=== PATIENT | male | born 1940 | race Caucasian/White ===

== ENCOUNTER 2016-09-19 18:19 | Emergency (ER) | payer OTHER, BC ==
[~2016-09-19] VITALS: Ht 170.2 cm; Wt 79.8 kg
[~2016-09-19 18:19] MED LIST: ANTIVERT25 MG PO; ASPIR-LOW81 MG PO; AUGMENTIN875 MG PO; AVODART PO; AVODART0.5 MG PO; AZITHROMYCIN250 MG PO; AZITHROMYCIN250 MG1 PO; BACTRIM,SEPT1 TABLET PO; CIPRO500 MG PO; Cipro PO; ESCITALOPRAM OX10 MG PO; FINASTERIDE5 MG PO; FLOMAX0.4 MG PO; Flomax PO; HYDROCODON-ACE1 EAC7 PO; LEXAPRO10 MG PO; LISINOPRIL5 MG PO; LO-DOSE ASPIRIN81 M1 PO; LOPRESSOR25 MG PO; LOW DOSE ASPIRI81 M1 PO; Lopressor PO; MECLIZINE HCL25 MG PO; MELOXICAM7.5 MG PO; METOPROLOL TART25 MG PO; NAPROSYN500 MG PO; NITROSTAT0.4 MG SL; NORCO 5/3251 TABLET PO; PERCOCET 5/31 TABLET PO; PLAVIX75 MG PO; PRAVACHOL20 MG PO; PRAVACHOL40 MG PO; PRAVASTATIN SOD20 MG PO; PRINIVIL5 MG PO; PROTONIX40 MG PO; PYRIDIUM200 MG PO; Pravachol PO; Protonix PO; TAMSULOSIN HCL0.4 MG PO; TRAMADOL HCL50 MG PO; Tylenol Regular Stre PO; ZOFRAN ODT4 MG PO; ZOFRAN4 MG PO; Zestril,Prinivil PO
[2016-09-19 20:41] LABS: HEMATOCRIT 43.5 % (38.0-50.0); MCH 30.3 PG (29.0-34.0); MCHC 34.3 G/DL (30.0-36.0); MCV 88.6 FL (86-99); MEAN PLAT.VOLUME 10.1 uM^3 (9.0-12.4); PLATELET COUNT 220 K/uL (156-360); RBC DIS.WIDTH-CV 13.7 % (11.8-14.6); RBC DIS.WIDTH-SD 43.6 % (39-53); RED BLOOD COUNT 4.91 M/uL (4.00-5.50); WHITE BLOOD COUNT 6.1 K/uL (4.1-10.2)
[2016-09-19 20:41] LABS: ADD MIUA? YES; BILIRUBIN NEGATIVE; BLOOD NEGATIVE; COLOR YELLOW ((YELLOW)); GLUCOSE (STRIP) NEGATIVE; KETONES NEGATIVE; LEUKOCYTES TRACE; NITRITE NEGATIVE; PROTEIN (STRIP) NEGATIVE; SPECIFIC GRAVITY 1.019 (1.000-1.030); UROBILINOGEN 0.2 MG/DL (0.2-1.0)
[2016-09-19 20:50] LABS: BACTERIA 2+ /HPF; EPITHELIAL CELLS RARE /HPF; MUCUS TRACE /LPF; RED BLOOD CELLS 0-5 /HPF (0-5); WHITE BLOOD CELLS 15-20 /HPF (0-5)
[2016-09-19 20:51] LABS: CHLORIDE 105 mEq/L (99-109); POTASSIUM 4.5 mEq/L (3.7-5.4); SODIUM 140 mEq/L (136-147)
[2016-09-19 20:54] LABS: GLUCOSE 115 mg/dL (70-99)
[2016-09-19 20:55] LABS: ANION GAP 10 MEQ/L (2-14)
[2016-09-19 20:56] LABS: TOTAL BILIRUBIN 0.3 mg/dL (0.0-1.0)
[2016-09-19 20:57] LABS: ALKALINE PHOSPHATASE 69 IU/L (3-129); GFR ESTIMATE (CALCULATED) > 59 mL/min/
[2016-09-19 20:58] LABS: UREA NITROGEN (BUN) 20 mg/dL (9-23)
[2016-09-20] MEDS ORDERED: ULTRAM50 MG PO (00:16)
[2016-09-20 00:55] VITALS: BP 128/78
== END 2016-09-20 00:58 | disposition home or self-care (01) ==
LOC: EME 18:19
PROVIDERS: Nurse Practitioner Family
DX: N20.0 Calculus of kidney (principal); E11.9 Type 2 diabetes mellitus without complications; E78.5 Hyperlipidemia, unspecified; I10 Essential (primary) hypertension; Z87.442 Personal history of urinary calculi; I25.2 Old myocardial infarction; K21.9 Gastro-esophageal reflux disease without esophagitis; Z95.0 Presence of cardiac pacemaker; Z95.1 Presence of aortocoronary bypass graft; Z98.61 Coronary angioplasty status; Z79.82 Long term (current) use of aspirin; Z87.891 Personal history of nicotine dependence
CPT/HCPCS: 74177; 80053; 81003; 85027; 87077; 87086; 87186; 99281; 99284; J1885; J7030

== ENCOUNTER 2016-09-28 11:56 | Observation (INO) | payer OTHER, BC ==
[~2016-09-28] VITALS: Ht 170.2 cm; Wt 83.3 kg
[~2016-09-28 11:56] MED LIST changes: +ULTRAM50 MG PO
[2016-09-28 12:51] LABS: EOSINOPHIL (%) 3.1 % (0-5); EOSINOPHIL COUNT 0.2 K/uL (0-0.3); HEMATOCRIT 41.6 % (38.0-50.0); IMMATURE GRANULOCYTE (%) 0.2 % (0.0-0.7); IMMATURE GRANULOCYTE COUNT 0.1 K/uL; LYMPHOCYTE COUNT 1.1 K/uL (1.0-2.8); MCH 29.9 PG (29.0-34.0); MCHC 33.9 G/DL (30.0-36.0); MCV 88.3 FL (86-99); MONOCYTE (%) 8.7 % (3-12); MONOCYTE COUNT 0.5 K/uL (0-0.8); NEUTROPHIL (%) 67.7 % (45-76); NEUTROPHIL COUNT 3.7 K/uL (1.8-6.4); PLATELET COUNT 193 K/uL (156-360); RBC DIS.WIDTH-CV 13.4 % (11.8-14.6); RBC DIS.WIDTH-SD 42.7 % (39-53); RED BLOOD COUNT 4.71 M/uL (4.00-5.50); WHITE BLOOD COUNT 5.5 K/uL (4.1-10.2)
[2016-09-28 12:59] LABS: CHLORIDE 107 mEq/L (99-109); POTASSIUM 4.1 mEq/L (3.7-5.4); SODIUM 140 mEq/L (136-147)
[2016-09-28 13:01] LABS: GLUCOSE 115 mg/dL (70-99)
[2016-09-28 13:02] LABS: ANION GAP 10 MEQ/L (2-14)
[2016-09-28 13:03] LABS: INTER. NORMALIZED RATIO 1.1; PROTHROMBIN TIME 10.7 (9.2-11.2); PTT 25.5 (25-32)
[2016-09-28 13:05] LABS: GFR ESTIMATE (CALCULATED) > 59 mL/min/
[2016-09-28 13:06] LABS: UREA NITROGEN (BUN) 18 mg/dL (9-23)
[2016-09-28 13:11] LABS: TROP-I INTERPRETATION NEGATIVE; TROPONIN-I < 0.01 ng/mL (0.0-0.30)
[2016-09-28] MEDS ORDERED: BUSPAR5 MG PO (14:15)
[2016-09-28 15:36] VITALS: BP 121/66
[2016-09-28 20:00] VITALS: BP 100/57
[2016-09-28 20:24] LABS: TROP-I INTERPRETATION NEGATIVE; TROPONIN-I < 0.01 ng/mL (0.0-0.30)
[2016-09-29] VITALS: BP 125/79
[2016-09-29 04:00] VITALS: BP 132/67
[2016-09-29 06:49] LABS: TROP-I INTERPRETATION NEGATIVE; TROPONIN-I < 0.01 ng/mL (0.0-0.30)
[2016-09-29 11:03] VITALS: BP 123/65
[2016-09-29] MEDS ORDERED: PANTOPRAZOLE SO40 MG PO (13:44)
[2016-09-29] MEDS ORDERED: AMOX TR-K CLV1 EAC4 PO (13:44)
[2016-09-29] MEDS ORDERED: PRAVASTATIN SOD40 MG PO (13:45)
[2016-09-29] MEDS ORDERED: LISINOPRIL5 MG PO (13:45)
[2016-09-29] MEDS ORDERED: LOPRESSOR25 MG PO (13:45)
[2016-09-29] MEDS ORDERED: BUSPAR5 MG PO (13:45)
[2016-09-29] MEDS ORDERED: NITROSTAT0.4 MG SL (13:45)
[2016-09-29] MEDS ORDERED: ASPIR-LOW81 MG PO (13:45)
[2016-09-29] MEDS ORDERED: ESCITALOPRAM OX20 MG PO (13:45)
== END 2016-09-29 14:32 | disposition home or self-care (01) ==
LOC: EME → EDBD 11:56 → EDOF 14:35 → 5WEST 15:31
PROVIDERS: Emergency Medicine; Family Medicine
DX: R07.89 Other chest pain (principal); R68.84 Jaw pain; I25.10 Atherosclerotic heart disease of native coronary artery without angina pectoris; I10 Essential (primary) hypertension; R20.0 Anesthesia of skin; Z95.1 Presence of aortocoronary bypass graft; Z95.0 Presence of cardiac pacemaker; Z95.5 Presence of coronary angioplasty implant and graft; E78.5 Hyperlipidemia, unspecified; F41.9 Anxiety disorder, unspecified
CPT/HCPCS: 71010; 80048; 84484; 85025; 85610; 85730; 93005; 99281; 99285; G0378; J1650

== ENCOUNTER 2016-10-16 18:18 | Emergency (ER) | payer OTHER, BC ==
[~2016-10-16] VITALS: Ht 170.2 cm; Wt 78.4 kg
[~2016-10-16 18:18] MED LIST changes: +AMOX TR-K CLV1 EAC4 PO; +BUSPAR5 MG PO; +ESCITALOPRAM OX20 MG PO; +PANTOPRAZOLE SO40 MG PO; +PRAVASTATIN SOD40 MG PO
[2016-10-16] MEDS ORDERED: TYLENOL WITH C1 EACH PO (19:11)
[2016-10-16] MEDS ORDERED: ULTRACET1 TABLET PO (19:23)
[2016-10-16 19:37] VITALS: BP 121/77
== END 2016-10-16 19:37 | disposition home or self-care (01) ==
LOC: EME 18:18
DX: R10.9 Unspecified abdominal pain (principal); I10 Essential (primary) hypertension; I25.2 Old myocardial infarction; Z88.1 Allergy status to other antibiotic agents; Z88.5 Allergy status to narcotic agent
CPT/HCPCS: 99281; 99283; J1885

== ENCOUNTER 2016-10-19 22:17 | Emergency (ER) | payer OTHER, BC ==
[~2016-10-19] VITALS: Ht 170.2 cm; Wt 81.2 kg
[~2016-10-19 22:17] MED LIST changes: +TYLENOL WITH C1 EACH PO; +ULTRACET1 TABLET PO
[2016-10-19 23:33] LABS: EOSINOPHIL (%) 3.3 % (0-5); EOSINOPHIL COUNT 0.2 K/uL (0-0.3); HEMATOCRIT 40.8 % (38.0-50.0); IMMATURE GRANULOCYTE (%) 0.2 % (0.0-0.7); INSTRUMENT ABS NEUTROPHIL CT 2.8 K/uL; LYMPHOCYTE COUNT 1.6 K/uL (1.0-2.8); MCH 29.8 PG (29.0-34.0); MCHC 32.8 G/DL (30.0-36.0); MCV 90.7 FL (86-99); MONOCYTE (%) 9.4 % (3-12); MONOCYTE COUNT 0.5 K/uL (0-0.8); NEUTROPHIL (%) 55.3 % (45-76); NEUTROPHIL COUNT 2.8 K/uL (1.8-6.4); RBC DIS.WIDTH-CV 13.2 % (11.8-14.6); RBC DIS.WIDTH-SD 43.4 % (39-53); WHITE BLOOD COUNT 5.1 K/uL (4.1-10.2)
[2016-10-19 23:59] LABS: TROP-I INTERPRETATION NEGATIVE; TROPONIN-I < 0.01 ng/mL (0.0-0.30)
[2016-10-20 00:18] LABS: ADD MIUA? NO; BILIRUBIN NEGATIVE; BLOOD NEGATIVE; COLOR YELLOW ((YELLOW)); GLUCOSE (STRIP) 50; KETONES NEGATIVE; LEUKOCYTES NEGATIVE; NITRITE NEGATIVE; PROTEIN (STRIP) NEGATIVE; SPECIFIC GRAVITY 1.024 (1.000-1.030); UROBILINOGEN 0.2 MG/DL (0.2-1.0)
[2016-10-20 00:20] LABS: MEAN PLAT.VOLUME 10.3 uM^3 (9.0-12.4); PLAT.SUFFICIENCY ADEQUATE; PLATELET COUNT 176 K/uL (156-360)
[2016-10-20 01:11] LABS: CHLORIDE 110 mEq/L (99-109); POTASSIUM 4.5 mEq/L (3.7-5.4); SODIUM 140 mEq/L (136-147)
[2016-10-20 01:13] LABS: GLUCOSE 108 mg/dL (70-99)
[2016-10-20 01:14] LABS: ANION GAP 8 MEQ/L (2-14)
[2016-10-20 01:17] LABS: GFR ESTIMATE (CALCULATED) > 59 mL/min/
[2016-10-20 01:18] LABS: UREA NITROGEN (BUN) 16 mg/dL (9-23)
[2016-10-20 03:52] LABS: TROP-I INTERPRETATION NEGATIVE; TROPONIN-I 0.01 ng/mL (0.0-0.30)
[2016-10-20] MEDS ORDERED: MOTRIN800 MG PO (04:02)
[2016-10-20] MEDS ORDERED: BENTYL20 MG PO (04:13)
[2016-10-20 04:38] VITALS: BP 123/77
== END 2016-10-20 04:40 | disposition home or self-care (01) ==
LOC: EME → EDBD 22:17 → EME 10-20 04:40
PROVIDERS: Emergency Medicine
DX: R07.89 Other chest pain (principal); R10.31 Right lower quadrant pain; G89.29 Other chronic pain; I10 Essential (primary) hypertension; Z95.810 Presence of automatic (implantable) cardiac defibrillator; Z95.2 Presence of prosthetic heart valve; Z95.5 Presence of coronary angioplasty implant and graft
CPT/HCPCS: 71020; 74177; 80048; 81003; 84484; 85025; 85027; 93005; 99281; 99285; J1885; J2270; J2405; J7030

== ENCOUNTER 2017-03-13 20:47 | Emergency (ER) | payer OTHER, BC ==
[~2017-03-13] VITALS: Ht 170.2 cm; Wt 79.3 kg
[~2017-03-13 20:47] MED LIST changes: +BENTYL20 MG PO; +MOTRIN800 MG PO
[2017-03-13 21:45] LABS: HEMATOCRIT 41.5 % (38.0-50.0); MCH 29.8 PG (29.0-34.0); MCHC 33.5 G/DL (30.0-36.0); MCV 89.1 FL (86-99); MEAN PLAT.VOLUME 9.6 uM^3 (9.0-12.4); PLATELET COUNT 199 K/uL (156-360); RBC DIS.WIDTH-CV 13.1 % (11.8-14.6); RBC DIS.WIDTH-SD 42.4 % (39-53); RED BLOOD COUNT 4.66 M/uL (4.00-5.50)
[2017-03-13 22:02] LABS: CHLORIDE 108 mEq/L (99-109); POTASSIUM 4.1 mEq/L (3.7-5.4); SODIUM 140 mEq/L (136-147)
[2017-03-13 22:04] LABS: GLUCOSE 107 mg/dL (70-99)
[2017-03-13 22:05] LABS: ANION GAP 8 MEQ/L (2-14)
[2017-03-13 22:06] LABS: TOTAL BILIRUBIN 0.4 mg/dL (0.0-1.0)
[2017-03-13 22:07] LABS: ALKALINE PHOSPHATASE 73 IU/L (3-129)
[2017-03-13 22:08] LABS: GFR ESTIMATE (CALCULATED) > 59 mL/min/
[2017-03-13 22:09] LABS: UREA NITROGEN (BUN) 18 mg/dL (9-23)
[2017-03-13 22:11] LABS: LIPASE 27 U/L (1.0-51.0); TROP-I INTERPRETATION NEGATIVE; TROPONIN-I < 0.01 ng/mL (0.0-0.30)
[2017-03-14 00:42] LABS: TROP-I INTERPRETATION NEGATIVE; TROPONIN-I < 0.01 ng/mL (0.0-0.30)
[2017-03-14 01:23] VITALS: BP 111/70
== END 2017-03-14 01:30 | disposition home or self-care (01) ==
LOC: EME 20:47
PROVIDERS: Emergency Medicine
DX: R10.9 Unspecified abdominal pain (principal); R07.9 Chest pain, unspecified; N50.819 Testicular pain, unspecified; M79.602 Pain in left arm; N20.0 Calculus of kidney; K57.30 Diverticulosis of large intestine without perforation or abscess without bleeding; I70.90 Unspecified atherosclerosis; Z95.0 Presence of cardiac pacemaker; Z95.1 Presence of aortocoronary bypass graft; Z95.5 Presence of coronary angioplasty implant and graft
CPT/HCPCS: 74177; 80053; 83690; 84484; 85027; 93005; 99281; 99285

== ENCOUNTER 2017-04-15 11:11 | Emergency (ER) | payer OTHER, BC ==
[~2017-04-15] VITALS: Ht 170.2 cm; Wt 79.5 kg
[2017-04-15 12:17] LABS: HEMATOCRIT 41.7 % (38.0-50.0); MCH 30.2 PG (29.0-34.0); MCHC 33.6 G/DL (30.0-36.0); MCV 89.9 FL (86-99); MEAN PLAT.VOLUME 9.7 uM^3 (9.0-12.4); PLATELET COUNT 200 K/uL (156-360); RBC DIS.WIDTH-CV 13.4 % (11.8-14.6); RBC DIS.WIDTH-SD 44.5 % (39-53); RED BLOOD COUNT 4.64 M/uL (4.00-5.50); WHITE BLOOD COUNT 5.4 K/uL (4.1-10.2)
[2017-04-15 12:26] LABS: CHLORIDE 106 mEq/L (99-109); SODIUM 141 mEq/L (136-147)
[2017-04-15 12:28] LABS: GLUCOSE 162 mg/dL (70-99)
[2017-04-15 12:29] LABS: ANION GAP 12 MEQ/L (2-14)
[2017-04-15 12:32] LABS: GFR ESTIMATE (CALCULATED) > 59 mL/min/
[2017-04-15 12:33] LABS: UREA NITROGEN (BUN) 17 mg/dL (9-23)
[2017-04-15 12:40] LABS: TROP-I INTERPRETATION NEGATIVE; TROPONIN-I < 0.01 ng/mL (0.0-0.30)
[2017-04-15 13:55] LABS: INFLUENZA A VIRAL ANTIGEN NEGATIVE; INFLUENZA B VIRAL ANTIGEN NEGATIVE
[2017-04-15 16:23] LABS: TROP-I INTERPRETATION NEGATIVE; TROPONIN-I < 0.01 ng/mL (0.0-0.30)
[2017-04-15 17:20] VITALS: BP 132/70
== END 2017-04-15 17:21 | disposition home or self-care (01) ==
LOC: EME 11:11
PROVIDERS: Physician Assistant
DX: R06.02 Shortness of breath (principal); F41.9 Anxiety disorder, unspecified; I51.9 Heart disease, unspecified; E11.65 Type 2 diabetes mellitus with hyperglycemia; R20.0 Anesthesia of skin; R20.2 Paresthesia of skin; Z98.61 Coronary angioplasty status; Z95.810 Presence of automatic (implantable) cardiac defibrillator; Z87.442 Personal history of urinary calculi; I25.2 Old myocardial infarction; K21.9 Gastro-esophageal reflux disease without esophagitis; I25.10 Atherosclerotic heart disease of native coronary artery without angina pectoris; I10 Essential (primary) hypertension; E78.5 Hyperlipidemia, unspecified; Z95.1 Presence of aortocoronary bypass graft; Z95.0 Presence of cardiac pacemaker; N40.0 Benign prostatic hyperplasia without lower urinary tract symptoms
CPT/HCPCS: 71020; 71275; 80048; 84484; 85027; 85379; 87502; 93005; 99281; 99283; J7030

== ENCOUNTER 2017-05-10 13:41 | Emergency (ER) | payer OTHER, BC ==
[~2017-05-10] VITALS: Ht 170.2 cm; Wt 76.9 kg
[2017-05-10 15:01] LABS: EOSINOPHIL (%) 2.5 % (0-5); EOSINOPHIL COUNT 0.2 K/uL (0-0.3); HEMATOCRIT 39.8 % (38.0-50.0); IMMATURE GRANULOCYTE (%) 0.5 % (0.0-0.7); INSTRUMENT ABS NEUTROPHIL CT 4.5 K/uL; LYMPHOCYTE COUNT 1.1 K/uL (1.0-2.8); MCH 29.8 PG (29.0-34.0); MCHC 33.2 G/DL (30.0-36.0); MCV 89.8 FL (86-99); MEAN PLAT.VOLUME 9.7 uM^3 (9.0-12.4); MONOCYTE (%) 8.7 % (3-12); MONOCYTE COUNT 0.6 K/uL (0-0.8); NEUTROPHIL (%) 71.1 % (45-76); NEUTROPHIL COUNT 4.5 K/uL (1.8-6.4); PLATELET COUNT 187 K/uL (156-360); RBC DIS.WIDTH-CV 13.5 % (11.8-14.6); RBC DIS.WIDTH-SD 44.7 % (39-53); RED BLOOD COUNT 4.43 M/uL (4.00-5.50); WHITE BLOOD COUNT 6.3 K/uL (4.1-10.2)
[2017-05-10 15:11] LABS: CHLORIDE 111 mEq/L (99-109); POTASSIUM 4.1 mEq/L (3.7-5.4); SODIUM 139 mEq/L (136-147)
[2017-05-10 15:12] LABS: GLUCOSE 96 mg/dL (70-99)
[2017-05-10 15:14] LABS: ANION GAP 6 MEQ/L (2-14)
[2017-05-10 15:16] LABS: GFR ESTIMATE (CALCULATED) > 59 mL/min/
[2017-05-10 15:17] LABS: UREA NITROGEN (BUN) 22 mg/dL (9-23)
[2017-05-10 15:23] LABS: TROP-I INTERPRETATION NEGATIVE; TROPONIN-I < 0.01 ng/mL (0.0-0.30)
[2017-05-10] MEDS ORDERED: DOXYCYCLINE HY100 MG PO (16:03)
[2017-05-10 17:15] VITALS: BP 123/71
== END 2017-05-10 17:29 | disposition home or self-care (01) ==
LOC: EME 13:41
PROVIDERS: Emergency Medicine
DX: J40 Bronchitis, not specified as acute or chronic (principal); I10 Essential (primary) hypertension; E78.5 Hyperlipidemia, unspecified; Z95.0 Presence of cardiac pacemaker; Z95.1 Presence of aortocoronary bypass graft; Z95.5 Presence of coronary angioplasty implant and graft; Z79.82 Long term (current) use of aspirin; Z88.1 Allergy status to other antibiotic agents
CPT/HCPCS: 71020; 80048; 84484; 85025; 93005; 99281; 99284

== ENCOUNTER 2017-05-16 22:30 | Emergency (ER) | payer OTHER, BC ==
[~2017-05-16] VITALS: Ht 170.2 cm; Wt 72.0 kg
[~2017-05-16 22:30] MED LIST changes: +DOXYCYCLINE HY100 MG PO
[2017-05-16 23:12] LABS: HEMATOCRIT 39.5 % (38.0-50.0); MCHC 33.7 G/DL (30.0-36.0); MEAN PLAT.VOLUME 9.7 uM^3 (9.0-12.4); PLATELET COUNT 219 K/uL (156-360); RBC DIS.WIDTH-CV 13.5 % (11.8-14.6); RBC DIS.WIDTH-SD 43.8 % (39-53); RED BLOOD COUNT 4.44 M/uL (4.00-5.50); WHITE BLOOD COUNT 7.2 K/uL (4.1-10.2)
[2017-05-16 23:21] LABS: CHLORIDE 106 mEq/L (99-109); POTASSIUM 4.2 mEq/L (3.7-5.4); SODIUM 137 mEq/L (136-147)
[2017-05-16 23:23] LABS: GLUCOSE 149 mg/dL (70-99)
[2017-05-16 23:25] LABS: ANION GAP 8 MEQ/L (2-14); TOTAL BILIRUBIN 0.3 mg/dL (0.0-1.0)
[2017-05-16 23:27] LABS: ALKALINE PHOSPHATASE 58 IU/L (3-129); GFR ESTIMATE (CALCULATED) > 59 mL/min/
[2017-05-16 23:28] LABS: UREA NITROGEN (BUN) 28 mg/dL (9-23)
[2017-05-16 23:29] LABS: DIRECT BILIRUBIN 0.1 mg/dL (0.0-0.3)
[2017-05-16 23:31] LABS: LIPASE 28 U/L (1.0-51.0)
[2017-05-16 23:54] LABS: TROP-I INTERPRETATION NEGATIVE; TROPONIN-I < 0.01 ng/mL (0.0-0.30)
[2017-05-17 01:01] LABS: ADD MIUA? NO; BILIRUBIN NEGATIVE; BLOOD NEGATIVE; COLOR YELLOW ((YELLOW)); GLUCOSE (STRIP) 50; KETONES NEGATIVE; LEUKOCYTES NEGATIVE; NITRITE NEGATIVE; PROTEIN (STRIP) NEGATIVE; SPECIFIC GRAVITY 1.026 (1.000-1.030); UCUL ADDED? NO; UROBILINOGEN 0.2 MG/DL (0.2-1.0)
[2017-05-17 02:28] VITALS: BP 136/76
== END 2017-05-17 02:30 | disposition home or self-care (01) ==
LOC: EME → EDBD 22:30 → EME 22:30
PROVIDERS: Emergency Medicine
DX: R10.84 Generalized abdominal pain (principal); R20.0 Anesthesia of skin; E11.9 Type 2 diabetes mellitus without complications; E78.5 Hyperlipidemia, unspecified; I10 Essential (primary) hypertension; I25.2 Old myocardial infarction; F32.9 Major depressive disorder, single episode, unspecified; Z87.442 Personal history of urinary calculi; K21.9 Gastro-esophageal reflux disease without esophagitis; F41.9 Anxiety disorder, unspecified; Z95.1 Presence of aortocoronary bypass graft; Z95.0 Presence of cardiac pacemaker; Z95.5 Presence of coronary angioplasty implant and graft; Z87.19 Personal history of other diseases of the digestive system
CPT/HCPCS: 70450; 74176; 80048; 80076; 81003; 83690; 84484; 85027; 87086; 93005; 99281; 99284

== ENCOUNTER 2017-06-15 16:04 | Emergency (ER) | payer OTHER, BC ==
[~2017-06-15] VITALS: Ht 170.2 cm; Wt 62.0 kg
[2017-06-15 16:51] LABS: HEMATOCRIT 40.4 % (38.0-50.0); MCH 30.5 PG (29.0-34.0); MCHC 33.9 G/DL (30.0-36.0); MEAN PLAT.VOLUME 9.8 uM^3 (9.0-12.4); PLATELET COUNT 224 K/uL (156-360); RBC DIS.WIDTH-CV 13.6 % (11.8-14.6); RBC DIS.WIDTH-SD 44.8 % (39-53); RED BLOOD COUNT 4.49 M/uL (4.00-5.50); WHITE BLOOD COUNT 5.6 K/uL (4.1-10.2)
[2017-06-15 17:00] LABS: CHLORIDE 110 mEq/L (99-109); POTASSIUM 4.1 mEq/L (3.7-5.4); SODIUM 141 mEq/L (136-147)
[2017-06-15 17:01] LABS: GLUCOSE 113 mg/dL (70-99)
[2017-06-15 17:03] LABS: ANION GAP 9 MEQ/L (2-14)
[2017-06-15 17:05] LABS: GFR ESTIMATE (CALCULATED) > 59 mL/min/
[2017-06-15 17:06] LABS: UREA NITROGEN (BUN) 20 mg/dL (9-23)
[2017-06-15 17:11] LABS: TROP-I INTERPRETATION NEGATIVE; TROPONIN-I < 0.01 ng/mL (0.0-0.30)
[2017-06-15 20:59] LABS: TROP-I INTERPRETATION NEGATIVE; TROPONIN-I < 0.01 ng/mL (0.0-0.30)
[2017-06-15 21:35] VITALS: BP 136/72
== END 2017-06-15 22:13 | disposition home or self-care (01) ==
LOC: EME 16:04 → EDOF 18:19 → ENRESERV 18:21 → EDOF 18:45 → ENRESERV 19:28 → CANRESERV 19:46
PROVIDERS: Emergency Medicine
DX: R07.9 Chest pain, unspecified (principal); R07.0 Pain in throat; R06.00 Dyspnea, unspecified; I25.2 Old myocardial infarction; Z95.811 Presence of heart assist device; Z95.1 Presence of aortocoronary bypass graft; Z95.5 Presence of coronary angioplasty implant and graft; Z77.22 Contact with and (suspected) exposure to environmental tobacco smoke (acute) (chronic)
CPT/HCPCS: 70491; 71010; 80048; 84484; 85027; 93005; 99281; 99285; J7040

== ENCOUNTER 2017-06-18 22:17 | Emergency (ER) | payer OTHER, BC ==
[~2017-06-18] VITALS: Ht 170.2 cm; Wt 85.1 kg
[2017-06-19 00:30] VITALS: BP 148/80
== END 2017-06-19 00:30 | disposition home or self-care (01) ==
LOC: EME 22:17
DX: S60.221A Contusion of right hand, initial encounter (principal); S60.211A Contusion of right wrist, initial encounter; S63.501A Unspecified sprain of right wrist, initial encounter; S64.31XA Injury of digital nerve of right thumb, initial encounter; W18.30XA Fall on same level, unspecified, initial encounter; Y92.481 Parking lot as the place of occurrence of the external cause; Z88.6 Allergy status to analgesic agent
CPT/HCPCS: 73110; 73130; 99281; 99283

== ENCOUNTER 2017-07-12 17:45 | Emergency (ER) | payer OTHER, BC ==
[~2017-07-12] VITALS: Ht 170.2 cm; Wt 78.0 kg
[2017-07-12 18:17] LABS: HEMATOCRIT 41.3 % (38.0-50.0); MCH 30.8 PG (29.0-34.0); MCHC 33.7 G/DL (30.0-36.0); MCV 91.4 FL (86-99); PLATELET COUNT 216 K/uL (156-360); RBC DIS.WIDTH-CV 13.7 % (11.8-14.6); RBC DIS.WIDTH-SD 46.1 % (39-53); RED BLOOD COUNT 4.52 M/uL (4.00-5.50); WHITE BLOOD COUNT 6.1 K/uL (4.1-10.2)
[2017-07-12 18:24] LABS: CHLORIDE 110 mEq/L (99-109); POTASSIUM 4.4 mEq/L (3.7-5.4); SODIUM 143 mEq/L (136-147)
[2017-07-12 18:26] LABS: GLUCOSE 113 mg/dL (70-99)
[2017-07-12 18:27] LABS: ANION GAP 7 MEQ/L (2-14)
[2017-07-12 18:28] LABS: TOTAL BILIRUBIN 0.2 mg/dL (0.0-1.0)
[2017-07-12 18:30] LABS: ALKALINE PHOSPHATASE 57 IU/L (3-129); GFR ESTIMATE (CALCULATED) > 59 mL/min/ (58.99-99999)
[2017-07-12 18:31] LABS: UREA NITROGEN (BUN) 20 mg/dL (9-23)
[2017-07-12 18:33] LABS: LIPASE 29 U/L (1.0-51.0)
[2017-07-12 18:36] LABS: TROP-I INTERPRETATION NEGATIVE; TROPONIN-I < 0.01 ng/mL (0.0-0.30)
[2017-07-12 21:13] LABS: TROP-I INTERPRETATION NEGATIVE; TROPONIN-I < 0.01 ng/mL (0.0-0.30)
[2017-07-12 23:29] VITALS: BP 130/73
== END 2017-07-12 23:31 | disposition home or self-care (01) ==
LOC: EME 17:45
PROVIDERS: Emergency Medicine
DX: R07.9 Chest pain, unspecified (principal); R10.32 Left lower quadrant pain; I10 Essential (primary) hypertension; E11.9 Type 2 diabetes mellitus without complications; E78.5 Hyperlipidemia, unspecified; J44.9 Chronic obstructive pulmonary disease, unspecified; K21.9 Gastro-esophageal reflux disease without esophagitis; F32.9 Major depressive disorder, single episode, unspecified; F41.9 Anxiety disorder, unspecified; I25.2 Old myocardial infarction; Z95.1 Presence of aortocoronary bypass graft; Z87.442 Personal history of urinary calculi; Z90.49 Acquired absence of other specified parts of digestive tract; Z87.19 Personal history of other diseases of the digestive system; Z95.810 Presence of automatic (implantable) cardiac defibrillator; Z95.5 Presence of coronary angioplasty implant and graft; Z88.5 Allergy status to narcotic agent; Z88.1 Allergy status to other antibiotic agents
CPT/HCPCS: 71010; 74177; 80053; 83690; 84484; 85027; 93005; 99281; 99284; J2060; J2270; J7120

== ENCOUNTER 2017-08-25 10:30 | Emergency (ER) | payer OTHER, BC ==
[~2017-08-25] VITALS: Ht 170.2 cm; Wt 80.0 kg
[2017-08-25 14:46] LABS: BASOPHIL (%) 0.6 % (0-1); EOSINOPHIL (%) 1.9 % (0-5); EOSINOPHIL COUNT 0.1 K/uL (0-0.3); HEMATOCRIT 41.2 % (38.0-50.0); HEMOGLOBIN 14.1 G/DL (12.5-16.6); IMMATURE GRANULOCYTE (%) 0.5 % (0.0-0.7); LYMPHOCYTE (%) 20.1 % (15-42); LYMPHOCYTE COUNT 1.3 K/uL (1.0-2.8); MCHC 34.2 G/DL (30.0-36.0); MCV 90.5 FL (86-99); MONOCYTE (%) 8.3 % (3-12); MONOCYTE COUNT 0.5 K/uL (0-0.8); NEUTROPHIL (%) 68.6 % (45-76); NEUTROPHIL COUNT 4.5 K/uL (1.8-6.4); PLATELET COUNT 209 K/uL (156-360); RBC DIS.WIDTH-CV 13.7 % (11.8-14.6); RBC DIS.WIDTH-SD 45.6 % (39-53); RED BLOOD COUNT 4.55 M/uL (4.00-5.50); WHITE BLOOD COUNT 6.5 K/uL (4.1-10.2)
[2017-08-25 14:55] LABS: ALBUMIN 3.4 g/dL (3.2-4.8); CHLORIDE 111 mEq/L (99-109); POTASSIUM 4.1 mEq/L (3.7-5.4); PTT 25.3 SEC (25-37); SODIUM 140 mEq/L (136-147)
[2017-08-25 14:57] LABS: GLUCOSE 138 mg/dL (70-99)
[2017-08-25 14:58] LABS: TOTAL PROTEIN 5.9 g/dL (6.4-8.3)
[2017-08-25 14:59] LABS: TOTAL BILIRUBIN 0.2 mg/dL (0.0-1.0)
[2017-08-25 15:01] LABS: ALKALINE PHOSPHATASE 42 IU/L (3-129); CREATININE 0.7 mg/dL (0.6-1.3); GFR ESTIMATE (CALCULATED) > 59 mL/min/ (58.99-99999)
[2017-08-25 15:02] LABS: UREA NITROGEN (BUN) 17 mg/dL (9-23)
[2017-08-25 15:03] LABS: AST (GOT) 26 IU/L (2-34)
[2017-08-25 15:04] LABS: ALT (GPT) 49 IU/L (3-49); LIPASE 26 U/L (1.0-51.0)
[2017-08-25 15:05] LABS: CREATINE KINASE 51 IU/L (1-294); TOTAL CK 51 IU/L (1-294)
[2017-08-25 15:07] LABS: TROP-I INTERPRETATION NEGATIVE; TROPONIN-I < 0.01 ng/mL (0.0-0.30)
[2017-08-25 15:10] LABS: CK-MB 1.4 ng/mL (0.0-4.9); CKMB RELATIVE INDEX 2.7 (0.0-3.9)
[2017-08-25 15:18] LABS: APPEARANCE CLEAR ((CLEAR)); BILIRUBIN NEGATIVE; BLOOD NEGATIVE; COLOR YELLOW ((YELLOW)); GLUCOSE (STRIP) 50; KETONES NEGATIVE; LEUKOCYTES NEGATIVE; NITRITE NEGATIVE; PROTEIN (STRIP) NEGATIVE; SPECIFIC GRAVITY 1.027 (1.000-1.030); UCUL ADDED? NO; UROBILINOGEN 0.2 MG/DL (0.2-1.0)
[2017-08-25] MEDS ORDERED: MOTRIN600 MG PO (21:47)
[2017-08-25] MEDS ORDERED: ULTRAM50 MG PO (21:47)
[2017-08-25 22:08] VITALS: BP 140/100
[2017-08-26] MEDS ORDERED: TYLENOL WITH C1 EACH PO (14:33)
== END 2017-08-25 22:19 | disposition home or self-care (01) ==
LOC: EME 10:30
PROVIDERS: Emergency Medicine
DX: N43.40 Spermatocele of epididymis, unspecified (principal); E11.9 Type 2 diabetes mellitus without complications; E78.5 Hyperlipidemia, unspecified; I10 Essential (primary) hypertension; I25.2 Old myocardial infarction; K21.9 Gastro-esophageal reflux disease without esophagitis; K57.90 Diverticulosis of intestine, part unspecified, without perforation or abscess without bleeding; Z87.19 Personal history of other diseases of the digestive system; F32.9 Major depressive disorder, single episode, unspecified; F41.9 Anxiety disorder, unspecified; Z87.442 Personal history of urinary calculi; Z88.5 Allergy status to narcotic agent; Z90.49 Acquired absence of other specified parts of digestive tract; Z95.0 Presence of cardiac pacemaker; Z95.1 Presence of aortocoronary bypass graft; Z95.5 Presence of coronary angioplasty implant and graft
CPT/HCPCS: 71045; 74177; 76870; 80053; 81003; 82550; 82553; 83690; 83735; 84484; 85025; 85610; 85730; 93005; 99281; 99285; J1885; J7030

== ENCOUNTER 2017-08-26 08:54 | Emergency (ER) | payer OTHER, BC ==
[~2017-08-26] VITALS: Ht 170.2 cm; Wt 81.8 kg
[~2017-08-26 08:54] MED LIST changes: +MOTRIN600 MG PO
[2017-08-26 13:07] LABS: BASOPHIL (%) 0.9 % (0-1); BASOPHIL COUNT 0.1 K/uL (0-0.1); EOSINOPHIL (%) 2.6 % (0-5); EOSINOPHIL COUNT 0.1 K/uL (0-0.3); HEMATOCRIT 40.5 % (38.0-50.0); HEMOGLOBIN 13.7 G/DL (12.5-16.6); IMMATURE GRANULOCYTE (%) 0.4 % (0.0-0.7); LYMPHOCYTE COUNT 1.3 K/uL (1.0-2.8); MCH 30.3 PG (29.0-34.0); MCHC 33.8 G/DL (30.0-36.0); MCV 89.6 FL (86-99); MONOCYTE (%) 9.3 % (3-12); MONOCYTE COUNT 0.5 K/uL (0-0.8); NEUTROPHIL (%) 63.8 % (45-76); NEUTROPHIL COUNT 3.5 K/uL (1.8-6.4); PLATELET COUNT 198 K/uL (156-360); RBC DIS.WIDTH-CV 13.4 % (11.8-14.6); RBC DIS.WIDTH-SD 44.2 % (39-53); RED BLOOD COUNT 4.52 M/uL (4.00-5.50); WHITE BLOOD COUNT 5.5 K/uL (4.1-10.2)
[2017-08-26 13:16] LABS: CHLORIDE 109 mEq/L (99-109); POTASSIUM 4.1 mEq/L (3.7-5.4); SODIUM 138 mEq/L (136-147)
[2017-08-26 13:18] LABS: GLUCOSE 107 mg/dL (70-99)
[2017-08-26 13:22] LABS: CREATININE 0.7 mg/dL (0.6-1.3); GFR ESTIMATE (CALCULATED) > 59 mL/min/ (58.99-99999); UREA NITROGEN (BUN) 16 mg/dL (9-23)
[2017-08-26 14:19] LABS: APPEARANCE CLEAR ((CLEAR)); BILIRUBIN NEGATIVE; BLOOD NEGATIVE; COLOR YELLOW ((YELLOW)); GLUCOSE (STRIP) 50; KETONES NEGATIVE; LEUKOCYTES SMALL; NITRITE NEGATIVE; PROTEIN (STRIP) 30; SPECIFIC GRAVITY 1.036 (1.000-1.030); UROBILINOGEN 0.2 MG/DL (0.2-1.0)
[2017-08-26 14:23] LABS: BACTERIA RARE /HPF; EPITHELIAL CELLS RARE /HPF; MUCUS TRACE /LPF; WHITE BLOOD CELLS 0-5 /HPF (0-5)
[2017-08-26] MEDS ORDERED: TYLENOL WITH C1 EACH PO (14:33)
[2017-08-26 15:09] VITALS: BP 127/81
== END 2017-08-26 15:09 | disposition home or self-care (01) ==
LOC: EME 08:54
PROVIDERS: Emergency Medicine
DX: R10.31 Right lower quadrant pain (principal); N43.40 Spermatocele of epididymis, unspecified; M79.651 Pain in right thigh; I10 Essential (primary) hypertension; E78.5 Hyperlipidemia, unspecified; I25.2 Old myocardial infarction; Z95.0 Presence of cardiac pacemaker; Z95.1 Presence of aortocoronary bypass graft; Z95.5 Presence of coronary angioplasty implant and graft; Z87.442 Personal history of urinary calculi; Z90.49 Acquired absence of other specified parts of digestive tract
CPT/HCPCS: 80048; 81003; 85025

== ENCOUNTER 2017-09-06 11:04 | Emergency (ER) | payer OTHER, BC ==
[~2017-09-06] VITALS: Ht 170.2 cm; Wt 75.4 kg
[2017-09-06 14:13] VITALS: BP 107/65
== END 2017-09-06 14:13 | disposition home or self-care (01) ==
LOC: EME 11:04
DX: M54.5 Low back pain (principal); G89.29 Other chronic pain; I10 Essential (primary) hypertension; E78.5 Hyperlipidemia, unspecified; E11.9 Type 2 diabetes mellitus without complications; K21.9 Gastro-esophageal reflux disease without esophagitis; I25.2 Old myocardial infarction; F41.9 Anxiety disorder, unspecified; F32.9 Major depressive disorder, single episode, unspecified; Z87.442 Personal history of urinary calculi; Z87.11 Personal history of peptic ulcer disease; Z87.19 Personal history of other diseases of the digestive system; Z95.1 Presence of aortocoronary bypass graft; Z95.5 Presence of coronary angioplasty implant and graft; Z95.0 Presence of cardiac pacemaker; Z90.49 Acquired absence of other specified parts of digestive tract; Z88.5 Allergy status to narcotic agent; Z88.1 Allergy status to other antibiotic agents
CPT/HCPCS: 99281; 99283; J2270

== ENCOUNTER 2017-09-12 14:03 | Emergency (ER) | payer OTHER, BC ==
[~2017-09-12] VITALS: Ht 170.2 cm; Wt 61.6 kg
[2017-09-12 16:23] VITALS: BP 115/71
== END 2017-09-12 16:33 | disposition home or self-care (01) ==
LOC: EME 14:03
DX: M54.5 Low back pain (principal); G89.29 Other chronic pain; E78.5 Hyperlipidemia, unspecified; I10 Essential (primary) hypertension; Z87.442 Personal history of urinary calculi; F32.9 Major depressive disorder, single episode, unspecified; I25.2 Old myocardial infarction; K21.9 Gastro-esophageal reflux disease without esophagitis; F41.9 Anxiety disorder, unspecified; Z95.0 Presence of cardiac pacemaker; Z95.1 Presence of aortocoronary bypass graft; Z95.5 Presence of coronary angioplasty implant and graft; Z88.5 Allergy status to narcotic agent; Z87.891 Personal history of nicotine dependence
CPT/HCPCS: 99281; 99284; J8540

== ENCOUNTER 2017-09-15 14:41 | Emergency (ER) | payer OTHER, BC ==
[~2017-09-15] VITALS: Ht 170.2 cm; Wt 83.1 kg
[2017-09-15 18:12] LABS: APPEARANCE CLEAR ((CLEAR)); BILIRUBIN NEGATIVE; BLOOD NEGATIVE; COLOR YELLOW ((YELLOW)); GLUCOSE (STRIP) NEGATIVE; KETONES NEGATIVE; LEUKOCYTES NEGATIVE; NITRITE NEGATIVE; PROTEIN (STRIP) NEGATIVE; SPECIFIC GRAVITY 1.024 (1.000-1.030); UROBILINOGEN 0.2 MG/DL (0.2-1.0)
[2017-09-15] MEDS ORDERED: TRAMADOL HCL50 MG PO (18:57)
[2017-09-15 19:25] VITALS: BP 137/71
== END 2017-09-15 19:28 | disposition home or self-care (01) ==
LOC: EME 14:41
PROVIDERS: Physician Assistant
DX: M54.5 Low back pain (principal); F32.9 Major depressive disorder, single episode, unspecified; E78.5 Hyperlipidemia, unspecified; I10 Essential (primary) hypertension; Z87.442 Personal history of urinary calculi; I25.2 Old myocardial infarction; K21.9 Gastro-esophageal reflux disease without esophagitis; F41.9 Anxiety disorder, unspecified; Z95.1 Presence of aortocoronary bypass graft; Z95.0 Presence of cardiac pacemaker; Z95.5 Presence of coronary angioplasty implant and graft; Z88.5 Allergy status to narcotic agent; Z88.1 Allergy status to other antibiotic agents; Z87.891 Personal history of nicotine dependence
CPT/HCPCS: 81003; 99281; 99284

== ENCOUNTER 2017-09-20 19:34 | Emergency (ER) | payer OTHER, BC ==
[~2017-09-20] VITALS: Ht 170.2 cm; Wt 82.6 kg
[2017-09-20 20:30] LABS: HEMATOCRIT 41.1 % (38.0-50.0); HEMOGLOBIN 14.1 G/DL (12.5-16.6); MCH 30.9 PG (29.0-34.0); MCHC 34.3 G/DL (30.0-36.0); MCV 90.1 FL (86-99); PLATELET COUNT 219 K/uL (156-360); RBC DIS.WIDTH-CV 13.6 % (11.8-14.6); RBC DIS.WIDTH-SD 44.9 % (39-53); RED BLOOD COUNT 4.56 M/uL (4.00-5.50); WHITE BLOOD COUNT 7.5 K/uL (4.1-10.2)
[2017-09-20 20:47] LABS: ALBUMIN 3.6 G/DL (3.2-4.8); CHLORIDE 108 MEQ/L (99-109); POTASSIUM 4.6 MEQ/L (3.7-5.4); SODIUM 140 MEQ/L (136-147); TOTAL BILIRUBIN 0.3 MG/DL (0.0-1.0)
[2017-09-20 20:53] LABS: ALKALINE PHOSPHATASE 50 IU/L (3-129); ALT (GPT) 22 IU/L (3-49); AST (GOT) 14 IU/L (2-34); CREATININE 0.7 MG/DL (0.6-1.3); GFR ESTIMATE (CALCULATED) > 59 mL/min/ (58.99-99999); GLUCOSE 129 mg/dL (70-99); UREA NITROGEN (BUN) 23 mg/dL (9-23)
[2017-09-20 23:38] LABS: LIPASE 21 U/L (1.0-51.0)
[2017-09-21] MEDS ORDERED: TYLENOL WITH C1 EACH PO (02:01)
[2017-09-21] MEDS ORDERED: ULTRAM50 MG PO (02:22)
[2017-09-21 02:36] VITALS: BP 118/70
== END 2017-09-21 02:38 | disposition home or self-care (01) ==
LOC: EME 19:34
DX: R10.31 Right lower quadrant pain (principal); E78.5 Hyperlipidemia, unspecified; I10 Essential (primary) hypertension; I25.2 Old myocardial infarction; K21.9 Gastro-esophageal reflux disease without esophagitis; F41.9 Anxiety disorder, unspecified; F32.9 Major depressive disorder, single episode, unspecified; Z95.1 Presence of aortocoronary bypass graft; Z95.0 Presence of cardiac pacemaker; Z88.5 Allergy status to narcotic agent; Z87.891 Personal history of nicotine dependence
CPT/HCPCS: 74176; 80053; 83690; 85027; 99281; 99284; J3010

== ENCOUNTER 2017-10-09 00:49 | Observation (INO) | payer OTHER, BC ==
[~2017-10-09] VITALS: Ht 170.2 cm; Wt 83.6 kg
[2017-10-09 01:44] LABS: HEMATOCRIT 38.2 % (38.0-50.0); HEMOGLOBIN 13.2 G/DL (12.5-16.6); MCH 31.2 PG (29.0-34.0); MCHC 34.6 G/DL (30.0-36.0); MCV 90.3 FL (86-99); PLATELET COUNT 195 K/uL (156-360); RBC DIS.WIDTH-CV 13.7 % (11.8-14.6); RED BLOOD COUNT 4.23 M/uL (4.00-5.50); WHITE BLOOD COUNT 5.7 K/uL (4.1-10.2)
[2017-10-09 02:00] LABS: ALBUMIN 3.5 g/dL (3.2-4.8)
[2017-10-09 02:01] LABS: CHLORIDE 110 mEq/L (99-109); POTASSIUM 4.2 mEq/L (3.7-5.4); SODIUM 141 mEq/L (136-147)
[2017-10-09 02:03] LABS: GLUCOSE 170 mg/dL (70-99)
[2017-10-09 02:05] LABS: TOTAL BILIRUBIN 0.3 mg/dL (0.0-1.0)
[2017-10-09 02:06] LABS: ALKALINE PHOSPHATASE 65 IU/L (3-129)
[2017-10-09 02:07] LABS: CREATININE 0.8 mg/dL (0.6-1.3); GFR ESTIMATE (CALCULATED) > 59 mL/min/ (58.99-99999)
[2017-10-09 02:08] LABS: AST (GOT) 24 IU/L (2-34); UREA NITROGEN (BUN) 23 mg/dL (9-23)
[2017-10-09 02:09] LABS: ALT (GPT) 35 IU/L (3-49); TROP-I INTERPRETATION NEGATIVE; TROPONIN-I < 0.01 ng/mL (0.0-0.30)
[2017-10-09 02:10] LABS: LIPASE 28 U/L (1.0-51.0)
[2017-10-09] MEDS ORDERED: BUSPAR5 MG PO (02:57)
[2017-10-09] MEDS ORDERED: FINASTERIDE5 MG PO (02:58)
[2017-10-09] MEDS ORDERED: GABAPENTIN300 MG PO (03:00)
[2017-10-09] MEDS ORDERED: ESCITALOPRAM OX20 MG PO (03:01)
[2017-10-09] MEDS ORDERED: LISINOPRIL5 MG PO (03:01)
[2017-10-09] MEDS ORDERED: BUPRENORPHINE1 EACH TD (03:01)
[2017-10-09] MEDS ORDERED: PRAVASTATIN SOD20 MG PO (03:02)
[2017-10-09] MEDS ORDERED: PANTOPRAZOLE SO40 MG PO (03:02)
[2017-10-09] MEDS ORDERED: ALFUZOSIN HCL10 MG PO (03:02)
[2017-10-09] MEDS ORDERED: LOPRESSOR25 MG PO (03:03)
[2017-10-09] MEDS ORDERED: BENTYL20 MG PO (03:04)
[2017-10-09] MEDS ORDERED: ASPIRIN81 M2 PO ×2 (03:05→03:06)
[2017-10-09 05:56] LABS: MAGNESIUM 2.2 mg/dL (1.3-2.7)
[2017-10-09 08:05] LABS: TROP-I INTERPRETATION NEGATIVE; TROPONIN-I < 0.01 ng/mL (0.0-0.30)
[2017-10-09 08:08] VITALS: BP 109/86
[2017-10-09 08:11] LABS: HDL CHOLESTEROL 38 MG/DL (Desirable>=40); LDL CHOLESTEROL 54 mg/dL (Desirable<100); NON-HDL CHOLESTEROL 68 mg/dL (Desirable<160); TOTAL CHOLESTEROL 106 mg/dL (Desirable<200); TRIGLYCERIDES 70 MG/DL (Normal: <150)
[2017-10-09] MEDS ORDERED: ULTRAM50 MG PO (10:14)
[2017-10-09] MEDS ORDERED: HYDROMORPHONE HC4 MG PO (10:14)
[2017-10-09] MEDS ORDERED: IBUPROFEN600 MG PO (10:14)
[2017-10-09] MEDS ORDERED: NAPROSYN500 MG PO (10:15)
[2017-10-09 13:05] VITALS: BP 111/61
[2017-10-09 14:26] LABS: TROP-I INTERPRETATION NEGATIVE; TROPONIN-I < 0.01 ng/mL (0.0-0.30)
[2017-10-09] MEDS ORDERED: NITROSTAT0.4 MG SL (14:47)
== END 2017-10-09 17:19 | disposition home or self-care (01) ==
LOC: EME 00:49 → EDOF 05:00 → ENRESERV 05:10 → 5WEST 07:10
PROVIDERS: Emergency Medicine; Physician Assistant Medical
DX: R07.89 Other chest pain (principal); R09.02 Hypoxemia; I25.10 Atherosclerotic heart disease of native coronary artery without angina pectoris; Z95.810 Presence of automatic (implantable) cardiac defibrillator; I25.5 Ischemic cardiomyopathy; Z95.1 Presence of aortocoronary bypass graft; Z95.5 Presence of coronary angioplasty implant and graft; I47.2 Ventricular tachycardia; I11.0 Hypertensive heart disease with heart failure; I50.22 Chronic systolic (congestive) heart failure; E78.5 Hyperlipidemia, unspecified; I42.9 Cardiomyopathy, unspecified; E11.9 Type 2 diabetes mellitus without complications; N40.0 Benign prostatic hyperplasia without lower urinary tract symptoms; F41.9 Anxiety disorder, unspecified; F32.9 Major depressive disorder, single episode, unspecified; Z87.442 Personal history of urinary calculi; Z82.49 Family history of ischemic heart disease and other diseases of the circulatory system; Z88.1 Allergy status to other antibiotic agents; Z88.5 Allergy status to narcotic agent; Z90.49 Acquired absence of other specified parts of digestive tract
CPT/HCPCS: 71046; 80053; 80061; 83690; 83735; 84484; 85027; 93005; 99281; 99285; G0378; J1644

== ENCOUNTER 2017-10-30 22:43 | Emergency (ER) | payer OTHER, BC ==
[~2017-10-30] VITALS: Ht 170.2 cm; Wt 81.0 kg
[~2017-10-30 22:43] MED LIST changes: +ALFUZOSIN HCL10 MG PO; +ASPIRIN81 M2 PO; +BUPRENORPHINE1 EACH TD; +GABAPENTIN300 MG PO; +HYDROMORPHONE HC4 MG PO; +IBUPROFEN600 MG PO
[2017-10-31 00:24] LABS: HEMATOCRIT 39.6 % (38.0-50.0); HEMOGLOBIN 13.6 G/DL (12.5-16.6); MCH 30.8 PG (29.0-34.0); MCHC 34.3 G/DL (30.0-36.0); MCV 89.8 FL (86-99); PLATELET COUNT 224 K/uL (156-360); RBC DIS.WIDTH-CV 13.9 % (11.8-14.6); RBC DIS.WIDTH-SD 45.9 % (39-53); RED BLOOD COUNT 4.41 M/uL (4.00-5.50); WHITE BLOOD COUNT 6.3 K/uL (4.1-10.2)
[2017-10-31 00:34] LABS: CHLORIDE 108 mEq/L (99-109); SODIUM 141 mEq/L (136-147)
[2017-10-31 00:36] LABS: GLUCOSE 104 mg/dL (70-99)
[2017-10-31 00:39] LABS: CREATININE 0.7 mg/dL (0.6-1.3); GFR ESTIMATE (CALCULATED) > 59 mL/min/ (58.99-99999)
[2017-10-31 00:40] LABS: UREA NITROGEN (BUN) 19 mg/dL (9-23)
[2017-10-31 01:11] LABS: ALBUMIN 3.7 g/dL (3.2-4.8)
[2017-10-31 01:14] LABS: TOTAL PROTEIN 6.4 g/dL (6.4-8.3)
[2017-10-31 01:15] LABS: TOTAL BILIRUBIN 0.4 mg/dL (0.0-1.0)
[2017-10-31 01:16] LABS: ALKALINE PHOSPHATASE 69 IU/L (3-129)
[2017-10-31 01:19] LABS: AST (GOT) 25 IU/L (2-34); DIRECT BILIRUBIN 0.1 mg/dL (0.0-0.3)
[2017-10-31 01:20] LABS: ALT (GPT) 40 IU/L (3-49); LIPASE 28 U/L (1.0-51.0)
[2017-10-31 01:21] LABS: TROP-I INTERPRETATION NEGATIVE; TROPONIN-I < 0.01 ng/mL (0.0-0.30)
[2017-10-31 01:35] LABS: APPEARANCE CLEAR ((CLEAR)); BILIRUBIN NEGATIVE; BLOOD NEGATIVE; COLOR YELLOW ((YELLOW)); GLUCOSE (STRIP) NEGATIVE; KETONES NEGATIVE; LEUKOCYTES NEGATIVE; NITRITE NEGATIVE; PROTEIN (STRIP) NEGATIVE; SPECIFIC GRAVITY 1.046 (1.000-1.030); UCUL ADDED? NO; UROBILINOGEN 0.2 MG/DL (0.2-1.0)
[2017-10-31 02:05] LABS: SERUM ETHYL ALCOHOL < 10 mg/dL
[2017-10-31 02:57] VITALS: BP 129/80
== END 2017-10-31 02:57 | disposition home or self-care (01) ==
LOC: EME 22:43
DX: R25.1 Tremor, unspecified (principal); R79.89 Other specified abnormal findings of blood chemistry; I10 Essential (primary) hypertension; E78.5 Hyperlipidemia, unspecified; K21.9 Gastro-esophageal reflux disease without esophagitis; I25.2 Old myocardial infarction; F32.9 Major depressive disorder, single episode, unspecified; F41.9 Anxiety disorder, unspecified; Z95.5 Presence of coronary angioplasty implant and graft; Z95.0 Presence of cardiac pacemaker; Z95.1 Presence of aortocoronary bypass graft; Z79.82 Long term (current) use of aspirin; Z88.5 Allergy status to narcotic agent; Z87.891 Personal history of nicotine dependence; Z87.19 Personal history of other diseases of the digestive system
CPT/HCPCS: 71046; 80048; 80076; 81003; 82140; 83690; 84484; 85027; 87502; 93005; 99281; 99285; G0480; J7030

== ENCOUNTER 2017-11-04 20:56 | Emergency (ER) | payer OTHER, BC ==
[~2017-11-04] VITALS: Ht 170.2 cm; Wt 81.7 kg
[2017-11-04 22:09] LABS: HEMATOCRIT 38.9 % (38.0-50.0); HEMOGLOBIN 13.4 G/DL (12.5-16.6); MCH 30.7 PG (29.0-34.0); MCHC 34.4 G/DL (30.0-36.0); PLATELET COUNT 202 K/uL (156-360); RBC DIS.WIDTH-CV 13.5 % (11.8-14.6); RBC DIS.WIDTH-SD 43.8 % (39-53); RED BLOOD COUNT 4.37 M/uL (4.00-5.50); WHITE BLOOD COUNT 5.1 K/uL (4.1-10.2)
[2017-11-04 22:19] LABS: ALBUMIN 3.7 g/dL (3.2-4.8); CHLORIDE 106 mEq/L (99-109); SODIUM 138 mEq/L (136-147)
[2017-11-04 22:22] LABS: GLUCOSE 133 mg/dL (70-99); TOTAL PROTEIN 6.3 g/dL (6.4-8.3)
[2017-11-04 22:25] LABS: ALKALINE PHOSPHATASE 64 IU/L (3-129); CREATININE 0.7 mg/dL (0.6-1.3); GFR ESTIMATE (CALCULATED) > 59 mL/min/ (58.99-99999)
[2017-11-04 22:26] LABS: UREA NITROGEN (BUN) 16 mg/dL (9-23)
[2017-11-04 22:27] LABS: AST (GOT) 22 IU/L (2-34)
[2017-11-04 22:28] LABS: ALT (GPT) 34 IU/L (3-49)
[2017-11-04 22:37] LABS: TOTAL BILIRUBIN 0.2 mg/dL (0.0-1.0)
[2017-11-05 00:39] LABS: APPEARANCE CLEAR ((CLEAR)); BILIRUBIN NEGATIVE; BLOOD NEGATIVE; COLOR YELLOW ((YELLOW)); GLUCOSE (STRIP) NEGATIVE; KETONES NEGATIVE; LEUKOCYTES NEGATIVE; NITRITE NEGATIVE; PROTEIN (STRIP) NEGATIVE; SPECIFIC GRAVITY 1.019 (1.000-1.030); UCUL ADDED? NO; UROBILINOGEN 0.2 MG/DL (0.2-1.0)
[2017-11-05] MEDS ORDERED: MOTRIN600 MG PO (03:24)
[2017-11-05 03:47] VITALS: BP 155/70
== END 2017-11-05 03:54 | disposition home or self-care (01) ==
LOC: EME 20:56
DX: N20.1 Calculus of ureter (principal); M51.36 Other intervertebral disc degeneration, lumbar region; I10 Essential (primary) hypertension; K21.9 Gastro-esophageal reflux disease without esophagitis; E78.5 Hyperlipidemia, unspecified; F41.9 Anxiety disorder, unspecified; F32.9 Major depressive disorder, single episode, unspecified; I25.2 Old myocardial infarction; Z95.1 Presence of aortocoronary bypass graft; Z95.5 Presence of coronary angioplasty implant and graft; Z95.0 Presence of cardiac pacemaker; Z87.442 Personal history of urinary calculi; Z87.19 Personal history of other diseases of the digestive system; Z90.49 Acquired absence of other specified parts of digestive tract; Z87.891 Personal history of nicotine dependence; Z79.82 Long term (current) use of aspirin; Z88.5 Allergy status to narcotic agent; Z88.1 Allergy status to other antibiotic agents
CPT/HCPCS: 72132; 80053; 81003; 85027; 85651; 99281; 99285; J7040

== ENCOUNTER 2018-01-28 11:44 | Emergency (ER) | payer OTHER, BC ==
[~2018-01-28] VITALS: Ht 170.2 cm; Wt 84.4 kg
[2018-01-28 14:01] LABS: HEMATOCRIT 39.2 % (38.0-50.0); HEMOGLOBIN 13.4 G/DL (12.5-16.6); MCH 30.7 PG (29.0-34.0); MCHC 34.2 G/DL (30.0-36.0); MCV 89.9 FL (86-99); PLATELET COUNT 202 K/uL (156-360); RBC DIS.WIDTH-CV 13.2 % (11.8-14.6); RBC DIS.WIDTH-SD 43.8 % (39-53); RED BLOOD COUNT 4.36 M/uL (4.00-5.50)
[2018-01-28 14:09] LABS: CHLORIDE 106 mEq/L (99-109); POTASSIUM 4.7 mEq/L (3.7-5.4); SODIUM 142 mEq/L (136-147)
[2018-01-28 14:11] LABS: GLUCOSE 114 mg/dL (70-99)
[2018-01-28 14:15] LABS: CREATININE 0.8 mg/dL (0.6-1.3); GFR ESTIMATE (CALCULATED) > 59 mL/min/ (58.99-99999)
[2018-01-28 14:16] LABS: UREA NITROGEN (BUN) 15 mg/dL (9-23)
[2018-01-28 18:00] VITALS: BP 134/76
== END 2018-01-28 18:15 | disposition home or self-care (01) ==
LOC: EME 11:44
PROVIDERS: Emergency Medicine
DX: R10.32 Left lower quadrant pain (principal); I25.10 Atherosclerotic heart disease of native coronary artery without angina pectoris; E78.5 Hyperlipidemia, unspecified; I10 Essential (primary) hypertension; K21.9 Gastro-esophageal reflux disease without esophagitis; Z95.1 Presence of aortocoronary bypass graft; F32.9 Major depressive disorder, single episode, unspecified; F41.9 Anxiety disorder, unspecified; I25.2 Old myocardial infarction; Z87.19 Personal history of other diseases of the digestive system; Z87.442 Personal history of urinary calculi; Z95.0 Presence of cardiac pacemaker; Z90.49 Acquired absence of other specified parts of digestive tract; Z95.5 Presence of coronary angioplasty implant and graft; Z79.82 Long term (current) use of aspirin; Z88.5 Allergy status to narcotic agent; Z88.1 Allergy status to other antibiotic agents; Z87.891 Personal history of nicotine dependence
CPT/HCPCS: 76881; 80048; 81003; 85027; 99281; 99285

== ENCOUNTER 2018-01-30 11:58 | Emergency (ER) | payer OTHER, BC ==
[~2018-01-30] VITALS: Ht 170.2 cm; Wt 82.7 kg
[2018-01-30 13:05] LABS: ALBUMIN 3.6 g/dL (3.2-4.8); CHLORIDE 107 mEq/L (99-109); POTASSIUM 4.7 mEq/L (3.7-5.4); SODIUM 138 mEq/L (136-147)
[2018-01-30 13:07] LABS: GLUCOSE 161 mg/dL (70-99); TOTAL PROTEIN 6.2 g/dL (6.4-8.3)
[2018-01-30 13:09] LABS: TOTAL BILIRUBIN 0.4 mg/dL (0.0-1.0)
[2018-01-30 13:11] LABS: ALKALINE PHOSPHATASE 66 IU/L (3-129); CREATININE 0.8 mg/dL (0.6-1.3); GFR ESTIMATE (CALCULATED) > 59 mL/min/ (58.99-99999)
[2018-01-30 13:12] LABS: UREA NITROGEN (BUN) 14 mg/dL (9-23)
[2018-01-30 13:13] LABS: AST (GOT) 22 IU/L (2-34)
[2018-01-30 13:14] LABS: ALT (GPT) 26 IU/L (3-49); LIPASE 15 U/L (1.0-51.0)
[2018-01-30 13:58] LABS: BASOPHIL (%) 0.2 % (0-1); EOSINOPHIL (%) 0.2 % (0-5); HEMATOCRIT 38.4 % (38.0-50.0); HEMOGLOBIN 13.2 G/DL (12.5-16.6); IMMATURE GRANULOCYTE (%) 0.4 % (0.0-0.7); LYMPHOCYTE (%) 3.2 % (15-42); LYMPHOCYTE COUNT 0.5 K/uL (1.0-2.8); MCH 30.8 PG (29.0-34.0); MCHC 34.4 G/DL (30.0-36.0); MCV 89.5 FL (86-99); MONOCYTE (%) 4.8 % (3-12); MONOCYTE COUNT 0.7 K/uL (0-0.8); NEUTROPHIL (%) 91.2 % (45-76); NEUTROPHIL COUNT 13.7 K/uL (1.8-6.4); PLATELET COUNT 171 K/uL (156-360); RBC DIS.WIDTH-CV 13.2 % (11.8-14.6); RBC DIS.WIDTH-SD 43.2 % (39-53); RED BLOOD COUNT 4.29 M/uL (4.00-5.50)
[2018-01-30 15:09] LABS: APPEARANCE CLEAR ((CLEAR)); BILIRUBIN NEGATIVE; BLOOD NEGATIVE; COLOR YELLOW ((YELLOW)); GLUCOSE (STRIP) NEGATIVE; KETONES NEGATIVE; LEUKOCYTES NEGATIVE; NITRITE NEGATIVE; PROTEIN (STRIP) 30; SPECIFIC GRAVITY 1.023 (1.000-1.030); UCUL ADDED? NO; UROBILINOGEN 0.2 MG/DL (0.2-1.0)
[2018-01-30] MEDS ORDERED: ZOFRAN ODT4 MG PO (16:46)
[2018-01-30 18:11] VITALS: BP 120/62
== END 2018-01-30 18:13 | disposition home or self-care (01) ==
LOC: EME 11:58
PROVIDERS: Emergency Medicine
DX: R10.84 Generalized abdominal pain (principal); E78.5 Hyperlipidemia, unspecified; F32.9 Major depressive disorder, single episode, unspecified; F41.9 Anxiety disorder, unspecified; I10 Essential (primary) hypertension; I25.2 Old myocardial infarction; I25.10 Atherosclerotic heart disease of native coronary artery without angina pectoris; K21.9 Gastro-esophageal reflux disease without esophagitis; Z95.0 Presence of cardiac pacemaker; Z95.5 Presence of coronary angioplasty implant and graft; Z95.1 Presence of aortocoronary bypass graft; Z90.49 Acquired absence of other specified parts of digestive tract; Z88.1 Allergy status to other antibiotic agents; Z87.891 Personal history of nicotine dependence; Z88.5 Allergy status to narcotic agent; Z87.442 Personal history of urinary calculi; Z87.19 Personal history of other diseases of the digestive system
CPT/HCPCS: 74177; 80053; 81003; 83690; 85025; 99281; 99285; J2405; J7040

== ENCOUNTER 2018-02-19 19:22 | Emergency (ER) | payer OTHER, BC ==
[~2018-02-19] VITALS: Ht 170.2 cm; Wt 82.6 kg
[2018-02-19 20:46] LABS: BASOPHIL (%) 0.4 % (0-1); EOSINOPHIL (%) 3.9 % (0-5); EOSINOPHIL COUNT 0.3 K/uL (0-0.3); HEMATOCRIT 40.8 % (38.0-50.0); HEMOGLOBIN 13.9 G/DL (12.5-16.6); IMMATURE GRANULOCYTE (%) 0.7 % (0.0-0.7); LYMPHOCYTE (%) 16.7 % (15-42); LYMPHOCYTE COUNT 1.2 K/uL (1.0-2.8); MCH 30.5 PG (29.0-34.0); MCHC 34.1 G/DL (30.0-36.0); MCV 89.5 FL (86-99); MONOCYTE (%) 9.8 % (3-12); MONOCYTE COUNT 0.7 K/uL (0-0.8); NEUTROPHIL (%) 68.5 % (45-76); NEUTROPHIL COUNT 4.7 K/uL (1.8-6.4); PLATELET COUNT 205 K/uL (156-360); RBC DIS.WIDTH-CV 13.7 % (11.8-14.6); RBC DIS.WIDTH-SD 44.6 % (39-53); RED BLOOD COUNT 4.56 M/uL (4.00-5.50); WHITE BLOOD COUNT 6.9 K/uL (4.1-10.2)
[2018-02-19 21:03] LABS: ALBUMIN 3.6 g/dL (3.2-4.8); CHLORIDE 108 mEq/L (99-109); POTASSIUM 4.2 mEq/L (3.7-5.4); SODIUM 139 mEq/L (136-147)
[2018-02-19 21:05] LABS: GLUCOSE 177 mg/dL (70-99); TOTAL PROTEIN 6.4 g/dL (6.4-8.3)
[2018-02-19 21:06] LABS: APPEARANCE CLEAR ((CLEAR)); BILIRUBIN NEGATIVE; BLOOD NEGATIVE; COLOR YELLOW ((YELLOW)); GLUCOSE (STRIP) NEGATIVE; KETONES NEGATIVE; LEUKOCYTES NEGATIVE; NITRITE NEGATIVE; PROTEIN (STRIP) NEGATIVE; SPECIFIC GRAVITY 1.024 (1.000-1.030); UCUL ADDED? NO; UROBILINOGEN 0.2 MG/DL (0.2-1.0)
[2018-02-19 21:07] LABS: TROP-I INTERPRETATION NEGATIVE; TROPONIN-I < 0.01 ng/mL (0.0-0.30)
[2018-02-19 21:07] LABS: TOTAL BILIRUBIN 0.3 mg/dL (0.0-1.0)
[2018-02-19 21:08] LABS: ALKALINE PHOSPHATASE 67 IU/L (3-129)
[2018-02-19 21:09] LABS: CREATININE 0.8 mg/dL (0.6-1.3); GFR ESTIMATE (CALCULATED) > 59 mL/min/ (58.99-99999)
[2018-02-19 21:10] LABS: AST (GOT) 22 IU/L (2-34); DIRECT BILIRUBIN 0.1 mg/dL (0.0-0.3); UREA NITROGEN (BUN) 18 mg/dL (9-23)
[2018-02-19 21:12] LABS: ALT (GPT) 35 IU/L (3-49); LIPASE 30 U/L (1.0-51.0)
[2018-02-19 23:37] VITALS: BP 161/91
== END 2018-02-19 23:37 | disposition home or self-care (01) ==
LOC: EME → EDBD 19:22 → EME 23:37
PROVIDERS: Emergency Medicine
DX: N13.2 Hydronephrosis with renal and ureteral calculous obstruction (principal); R10.30 Lower abdominal pain, unspecified; R19.7 Diarrhea, unspecified; R11.2 Nausea with vomiting, unspecified; K57.30 Diverticulosis of large intestine without perforation or abscess without bleeding; N28.1 Cyst of kidney, acquired; I70.0 Atherosclerosis of aorta; I25.2 Old myocardial infarction; Z79.82 Long term (current) use of aspirin; Z87.442 Personal history of urinary calculi; Z87.891 Personal history of nicotine dependence
CPT/HCPCS: 71046; 74177; 80048; 80076; 81003; 83605; 83690; 83880; 84484; 85025; 93005